=== PATIENT | female | born 1985 | race African-American/Black ===

== ENCOUNTER 2016-03-14 12:02 | Emergency (ER) | payer MEDICAID, OTHER ==
[~2016-03-14] VITALS: Ht 165.1 cm; Wt 72.6 kg
[~2016-03-14 12:02] MED LIST: IBUPROFEN600 MG ORAL
[2016-03-14] MEDS ORDERED: NKM (12:13)
--- NOTE | 2016-03-14 12:51 | Emergency Room Report ---
History of Present Illness General Chief Complaint: Abdominal Pain Source: Patient Present Illness HPI 30-year-old female presents to the emergency department complaining of generalized abdominal pain since last night. Patient reports increased flatulence mildly loose stools compared to normal. Patient denies actual diarrhea or constipation. Patient denies nausea, vomiting, fevers, chills, ill contacts, recent travel. Patient reports pain is 8/10 in severity and migratory throughout the abdomen with episodes of sharp 10 out of 10 severity pain. Patient states pain is worse with sitting and feels better if she is in the position or lying down. Patient denies . Patient states she is not currently taking control however she reports she has had 2 abnormal Pap smears. Patient denies vaginal discharge or history of STI.denies blood in the stool, or black tarry stools. Denies CP, Palpitations, LOC, AMS, dizziness, Changes in Vision, Sensation, paresthesias, or a sudden severe headache. Allergies: Coded Allergies: PENICILLINS (Verified Allergy, Unknown, 03/14/16) SULFADIAZINE (Verified Allergy, Unknown, 03/14/16) Patient History Past Medical History: see triage record Past Surgical History: none Pertinent Family History: none Last Menstrual Period: 03/10/2016 Now: No Immunizations: UTD Reviewed Nursing Documentation: PMH: Agreed, PSxH: Agreed Nursing Documentation-PMH Past Medical History: No History, Except For Review of Systems All Other Systems: negative except mentioned in HPI Physical Exam Vital Signs Date Time Temp Pulse Resp B/P Pulse Ox O2 Delivery O2 Flow Rate FiO2 03/14/16 12:08 98.8 99 18 129/68 99 Room Air Sp02 EP Interpretation: reviewed, normal General Appearance: no apparent distress, alert, GCS 15, non-toxic Head: normocephalic, atraumatic Eyes: bilateral eye PERRL, bilateral eye normal inspection ENT: hearing grossly normal, normal pharynx, no angioedema, normal voice Neck: full range of motion, supple/symm/no masses Respiratory: chest non-tender, lungs clear, normal breath sounds, speaking full sentences Cardiovascular #1: regular rate, rhythm, no edema Gastrointestinal: normal bowel sounds, non tender, soft, no guarding, no rebound, other - Negative [place] signs, Negative MacBurney's sign, Negative Rosvigns Sign, Negative Psoas, No Peritoneal signs. Rectal: deferred Genitourinary: normal inspection, no CVA tenderness Musculoskeletal: back normal, gait/station normal, normal range of motion, non- tender, no calf tenderness Neurologic: alert, oriented x3, responsive, motor strength/tone normal, sensory intact, speech normal Psychiatric: judgement/insight normal, memory normal, mood/affect normal, no suicidal/homicidal ideation Skin: normal color, no rash, warm/dry, well hydrated Lymphatic: no adenopathy Medical Decision Making PA Attestation Dr. Sheffield is my supervising Physician whom patient management has been discussed with. Diagnostic Impression: Primary Impression: Abdominal pain in female ER Course Pt. presents to the ED c/o 12/09 in severity diffuse abdominal pain since yesterday. Ddx considered but are not limited to Diverticulitis, acute appy, diarrhea,UC, PUD, GE, pancreatitis, gallstone, , UTI just to name a few Vital signs: are WNL, pt. is afebrile H&PE are most consistent with Hypovolemia and diarrhea ORDERS: CBC: Leukocytosis in the 19k - CMP: WNL , good renal function pt. is candidate for IV contrast. -lipase: WNL -UA: WNL / unremarkable -Urine Hcg: Negative ED INTERVENTIONS: -15mg Toradol IV -2% viscous lidocaine PO - Mylanta PO - Discussed with patient the results of her laboratory and imaging. Patient verbalized her dissatisfaction with treatment time in addition to the need for CT. patient approached nursing station several times. And was verbally aggressive and demanded to speak with supervisors because she states that she does not on her insurance to pay for the evaluation that she received. Patient eventually was escorted outside. DISCHARGE: At this time pt. is stable for d/c to home. Will provide printed patient care instructions, and any necessary prescriptions. Care plan and follow up instructions have been discussed with the patient prior to discharge. Labs Test 03/14/16 12:52 White Blood Count 19.5 K/UL (4.8-10.8) Red Blood Count 5.19 M/UL (4.20-5.40) Hemoglobin 14.1 G/DL (12.0-16.0) Hematocrit 42.5 % (37.0-47.0) Mean Corpuscular Volume 82 FL (80-99) Mean Corpuscular Hemoglobin 27.2 PG (27.0-31.0) Mean Corpuscular Hemoglobin Concent 33.2 G/DL (32.0-36.0) Red Cell Distribution Width 12.1 % (11.6-14.8) Platelet Count 420 K/UL (150-450) Mean Platelet Volume 6.3 FL (6.5-10.1) Neutrophils (%) (Auto) % (45.0-75.0) Lymphocytes (%) (Auto) % (20.0-45.0) Monocytes (%) (Auto) % (1.0-10.0) Eosinophils (%) (Auto) % (0.0-3.0) Basophils (%) (Auto) % (0.0-2.0) Differential Total Cells Counted 100 Neutrophils % (Manual) 90 % (45-75) Lymphocytes % (Manual) 7 % (20-45) Monocytes % (Manual) 3 % (1-10) Eosinophils % (Manual) 0 % (0-3) Basophils % (Manual) 0 % (0-2) Band Neutrophils 0 % (0-8) Platelet Estimate Adequate Platelet Morphology Normal Red Blood Cell Morphology Normal Urine Color Yellow Urine Appearance Clear Urine pH 5 (4.5-8.0) Urine Specific [place] 1.020 (1.005-1.035) Urine Protein Negative (NEGATIVE) Urine Glucose (UA) Negative (NEGATIVE) Urine Ketones Negative (NEGATIVE) Urine Occult Blood 2+ (NEGATIVE) Urine Nitrite Negative (NEGATIVE) Urine Bilirubin Negative (NEGATIVE) Urine Urobilinogen Normal MG/DL (0.0-1.0) Urine Leukocyte Esterase Negative (NEGATIVE) Urine RBC 2-4 /HPF (0 - 2) Urine WBC 0-2 /HPF (0 - 2) Urine Squamous Epithelial Cells Few /LPF (NONE/OCC) Urine Bacteria Few /HPF (NONE) Urine Mucus Few /LPF (NONE/OCC) Urine HCG, Qualitative Negative Sodium Level 140 mEQ/L (135-145) Potassium Level 4.4 mEQ/L (3.4-4.9) Chloride Level 99 mEQ/L (98-107) Carbon Dioxide Level 28 mEQ/L (20-30) Anion Gap 13 (5-15) Blood Urea Nitrogen 7 mg/dL (7-23) Creatinine 0.7 mg/dL (0.5-0.9) Estimat Glomerular Filtration Rate > 60 mL/min (>60) Glucose Level 83 mg/dL (74-106) Calcium Level 9.4 mg/dL (8.6-10.2) Total Bilirubin 0.5 mg/dL (0.0-1.2) Aspartate Amino Transf (AST/SGOT) 15 U/L (5-40) Alanine Aminotransferase (ALT/SGPT) 7 U/L (3-33) Alkaline Phosphatase 52 U/L (35-104) Total Protein 7.5 g/dL (6.6-8.7) Albumin 4.4 g/dL (3.5-5.2) Globulin 3.1 g/dL Albumin/Globulin Ratio 1.4 (1.0-2.7) Lipase 14 U/L (< 60) Last Vital Signs Date Time Temp Pulse Resp B/P Pulse Ox O2 Delivery O2 Flow Rate FiO2 03/14/16 12:08 98.8 99 18 129/68 99 Room Air Disposition: AGAINST MEDICAL ADVICE Condition: Stable Scripts Acetaminophen* (TYLENOL EXTRA STRENGTH*) 500 Mg Tablet 500 MG ORAL Q6H, #30 TAB Prov: Tiana Morataya.A. 03/14/16 Ranitidine Hcl* (ZANTAC*) 150 Mg Tablet 150 MG ORAL DAILY, #30 TAB 0 Refills Prov: Tiana Morataya.Feliz 03/14/16 Metoclopramide Hcl* (REGLAN*) 10 Mg Tablet 10 MG ORAL THREE TIMES A DAY, #20 TAB Prov: Tiana Morataya.A. 03/14/16 Referrals: [facility] (PCP) Patient Instructions: Abdominal Pain, Adult Additional Instructions: Take medications as directed. You have been cleared from an Emergency Medical standpoint and are stable for outpatient follow up and continued evaluation of your symptoms. Follow up with PCP in 3 days may require GI specialist follow up if you continue to have symptoms despite conservative treatment. * recommend follow up with your PCP or OBGYN as CT incidentally showed you have increased pelvic congestion * Return sooner to ED if new symptoms occur, or current symptoms become worse. Tiana Morataya Mar 14, 2016 12:51
[2016-03-14 13:10] LABS: MEAN CORPUSCULAR HEMOGLOBIN 27.2 PG (27.0-31.0); MEAN CORPUSCULAR HGB CONC 33.2 G/DL (32.0-36.0); MEAN CORPUSCULAR VOLUME 82 FL (80-99); MEAN PLATELET VOLUME 6.3 FL (6.5-10.1); PLATELET COUNT 420 K/UL (150-450); RED BLOOD COUNT 5.19 M/UL (4.20-5.40); RED CELL DISTRIBUTION WIDTH 12.1 % (11.6-14.8); WHITE BLOOD COUNT 19.5 K/UL (4.8-10.8)
[2016-03-14 13:11] LABS: APPEARANCE,URINE CLEAR; KETONES,URINE NEGATIVE (NEGATIVE); LEUKOCYTE ESTERASE ,URINE NEGATIVE (NEGATIVE); NITRITE,URINE NEGATIVE (NEGATIVE); PH,URINE 5 (4.5-8.0); PROTEIN,URINE NEGATIVE (NEGATIVE); UROBILINOGEN,URINE NORMAL MG/DL (0.0-1.0)
[2016-03-14 13:20] LABS: BACTERIA,URINE FEW /HPF; MUCUS,URINE FEW /LPF (NONE/OCC); SQUAMOUS EPITHELIAL CELL,UR FEW /LPF (NONE/OCC); WBC,URINE 0-2 /HPF (0 - 2)
[2016-03-14 13:27] LABS: ALANINE AMINOTRANSFERASE 7 U/L (3-33); ALBUMIN/GLOBULIN RATIO 1.4 (1.0-2.7); ANION GAP 13 (5-15); ASPARTATE AMINO TRANSFERASE 15 U/L (5-40); CALCIUM 9.4 mg/dL (8.6-10.2); CARBON DIOXIDE 28 mEQ/L (20-30); CHLORIDE 99 mEQ/L (98-107); CREATININE 0.7 mg/dL (0.5-0.9); GLOMERULAR FILTRATION RATE > 60 mL/min (>60); HEMOLYSIS 3; LIPASE 14 U/L (< 60); POTASSIUM 4.4 mEQ/L (3.4-4.9); SODIUM 140 mEQ/L (135-145); TOTAL PROTEIN 7.5 g/dL (6.6-8.7)
[2016-03-14 13:38] LABS: LYMPHOCYTES % (MANUAL) 7 % (20-45); NEUTROPHILS % (MANUAL) 90 % (45-75); TOTAL CELLS COUNTED 100
[2016-03-14 13:39] LABS: BAND NEUTROPHILS % (MANUAL) 0 % (0-8); BASOPHILS % (MANUAL) 0 % (0-2); EOSINOPHILS % (MANUAL) 0 % (0-3); PLATELET ESTIMATE ADEQUATE; PLATELET MORPHOLOGY NORMAL
[2016-03-14] MEDS ORDERED: Ketorolac 60mg Inj IM ONE (13:45)
[2016-03-14] MEDS ORDERED: Ketorolac 30mg Inj IV ONE (13:45)
[2016-03-14] MEDS ORDERED: Lidocaine 2% Visc 15ml soln ORAL ONE ×2 (13:45→14:00)
[2016-03-14] MEDS ORDERED: REGLAN10 MG ORAL (13:48)
[2016-03-14] MEDS ORDERED: ZANTAC150 MG ORAL (13:48)
[2016-03-14] MEDS ORDERED: Mylanta II UD 30ml ORAL ONE (14:00)
[2016-03-14 14:08] VITALS: BP 133/72
--- NOTE | 2016-03-14 14:53 | Diagnostic Imaging Report ---
Indication: Abdominal pain Technique: Continuous helical transaxial imaging of the abdomen and pelvis was obtained from the lung bases to the pubic symphysis during intravenous contrast administration. Coronal 2-D reformats were also obtained. Study obtained in a Siemens sensation [address] Total Dose length Product (DLP): [address] Dose Index Volume (CTDIvol): 16 mGy Comparison: None Findings: Lung bases are clear. The liver is unremarkable. Gallbladder is unremarkable. Pancreas adrenal glands and spleen unremarkable. There is no hydronephrosis. Both kidneys enhance normally. The appendix is not seen. There are no secondary signs of appendicitis. However there is very little intra-abdominal fat and multiple unopacified loops of small bowel in the right lower quadrant some of which contain fluid. In this setting, appendicitis is difficult to exclude and for that reason the study is relatively nondiagnostic with regard to appendicitis. The bladder is unremarkable in appearance. There is a moderate amount of adnexal and lower pelvic enhancing veins. Consider pelvic congestion syndrome. Impression: Consider pelvic congestion syndrome given prominence of vascular structures within the pelvis. Essentially negative contrast CT of the abdomen and pelvis otherwise. Nondiagnostic exam with regard to the appendix. This is discussed above. The CT scanner at [facility] is accredited by the [employer] [place] [employer] and the scans are performed using protocols designed to limit radiation exposure to as low as reasonably achievable to attain images of sufficient resolution adequate for diagnostic evaluation.
[2016-03-14] MEDS ORDERED: ACETAMINOPHEN500 MG ORAL (14:59)
[2016-03-14 15:15] VITALS: BP 133/72
== END 2016-03-14 15:10 | disposition left against medical advice (07) ==
LOC: EMR 12:44
DX: R10.84 Generalized abdominal pain (principal); Z88.0 Allergy status to penicillin; Z88.2 Allergy status to sulfonamides; D72.829 Elevated white blood cell count, unspecified
CPT/HCPCS: 36415; 74177; 80053; 81003; 81025; 83690; 85007; 85025; 99284; Q9967; 82962

== ENCOUNTER 2018-11-12 08:40 | Emergency (ER) | payer MEDICAID, OTHER ==
[~2018-11-12] VITALS: Ht 165.1 cm; Wt 72.6 kg
[~2018-11-12 08:40] MED LIST changes: +ACETAMINOPHEN500 MG ORAL; +NKM; +REGLAN10 MG ORAL; +ZANTAC150 MG ORAL
[2018-11-12] MEDS ORDERED: LIDODERM700 M1 TOPIC (09:15)
[2018-11-12] MEDS ORDERED: Acetaminophen 500mg (ES) tab ORAL ONE (09:15)
[2018-11-12] MEDS ORDERED: ROBAXIN-750750 MG PO (09:15)
[2018-11-12] MEDS ORDERED: NAPROXEN250 MG ORAL (09:15)
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
[2018-11-12 09:58] VITALS: BP 143/92
[2018-11-12 10:01] VITALS: BP 143/92
--- NOTE | 2018-11-12 10:03 | NUR ---
ED Nurse Note: Pt cleared by health care Provider for discharge. DC instructions/prescription was given and explained to pt and verbalized understanding of teachings. All medical deviecs such as ID band removed. Pt is AAO x4, ambulatory and left with all personal belongings.
== END 2018-11-12 09:50 | disposition home or self-care (01) ==
LOC: EMR 09:17
DX: M54.5 Low back pain (principal); T14.8XXA Other injury of unspecified body region, initial encounter; M54.2 Cervicalgia; Z88.0 Allergy status to penicillin; Z88.2 Allergy status to sulfonamides; V43.62XA Car passenger injured in collision with other type car in traffic accident, initial encounter; Y92.410 Unspecified street and highway as the place of occurrence of the external cause
CPT/HCPCS: 81025; Z7502; 99283